=== PATIENT | male | born 1975 | race Hispanic/Latino ===

== ENCOUNTER 2024-05-03 08:56 | Inpatient (IN) | payer MEDICAID ==
[~2024-05-03] VITALS: Ht 172.7 cm; Wt 108.9 kg
[2024-05-03 09:55] LABS: BASOPHILS # (AUTO) 0.04 K/uL (0.00-0.20); BASOPHILS % (AUTO) 0.3 % (0.0-5.0); EOSINOPHILS # (AUTO) 0.01 K/uL (0.00-0.70); EOSINOPHILS % (AUTO) 0.1 % (0.0-8.0); HEMATOCRIT 51.2 % (42-54); IMMATURE GRANULOCYTE ABSOLUTE 0.02 K/uL (0-1); LYMPHOCYTES # (AUTO) 2.1 K/uL (1.0-4.8); MEAN CORPUSCULAR HEMOGLOBIN 29.3 pg (27.0-33.0); MEAN CORPUSCULAR VOLUME 86.3 fL (79-99); MONOCYTES # (AUTO) 0.7 K/uL (0.1-1.0); MONOCYTES % (AUTO) 5.7 % (3.0-13.0); NEUTROPHILS % (AUTO) 77.7 % (40.0-77.0); PLATELET COUNT (AUTO) 157 K/uL (130-400); RED BLOOD CELL COUNT(AUTO) 5.93 MIL/uL (4.50-6.20); RED CELL DISTRIBUTION WIDTH 12.3 % (11.0-15.5); WHITE BLOOD COUNT (AUTO) 12.9 K/uL (4.8-10.8)
[2024-05-03 10:09] LABS: CREATININE 0.9 mg/dL (0.5-1.3); POTASSIUM 3.6 mmol/L (3.5-5.1)
[2024-05-03 10:32] LABS: BILIRUBIN,DIRECT 0.3 mg/dL (0.0-0.3); BILIRUBIN,TOTAL 1.1 mg/dL (0.2-1.0); TOTAL PROTEIN, SERUM 7.9 g/dL (6.0-8.3)
--- NOTE | 2024-05-03 10:38 | ERN ---
ED Note History of Present Illness Stated Complaint: MEDICAL CLEARANCE Chief Complaint: Medical Clearance Time Seen by MD: 08:59 Dictation: 48-year-old male presents to the ED via EMS for evaluation of medical clearance. Patient is currently admitted at [facility] and was sent for evaluation and are requesting a CK level. Allergies: Coded Allergies: Penicillins (Unverified Allergy, Unknown, 05/03/24) Past Medical History Past Medical History: Depression Surgical History: Other Review of System Dictation Constitutional: Negative for fever,chills, and weight loss Eyes: Negative for injury, pain,redness, and discharge ENT: Negative for injury,pain or swelling Cardiovascular: Negative for chest pain, palpitations, and edema Respiratory: Negative for shortness of breath, cough, and wheezing, Abdomen/GI: Negative for abdominal pain, nausea, vomiting, diarrhea, and constipation Back: Negative for injury and pain : Negative for injury, bleeding and discharge MS/Extremity: Negative for injury and deformity Skin: Negative for rash, and discoloration Initial Vital Sign VS Vital Signs Date Time Temp Pulse Resp B/P (MAP) Pulse Ox O2 Delivery O2 Flow Rate FiO2 05/03/24 08:59 98.4 79 20 169/97 99 Room Air 05/03/24 13:31 0 21 Physical Exam Dictation General: awake, alert, NAD Head/Face: Normocephalic, atraumatic Eyes: PERRL, EOMI, vision at baseline ENT: oral cavity clear, TMs clear, no signs of infection Neck: Trachea midline, supple, no nuchal rigidity Cardiovascular: RRR, normal S1/S2, No MRGs, no JVD Respiratory: CTAB, no respiratory distress, No rales or wheezes Abdomen: Soft, non-tender, non-distended, normal bowel sounds, no guarding or rebound. Skin: Warm, dry, normal turgor, no rash MS/Extremity: Pulses equal, no cyanosis, neurovascular intact, FROM Neuro: COAx4, GCS 15, strength 5/5, CN 2-12 intact, normal cerebellar exam, nor mal gait, Psych: Flat affect Results (Laboratory/Radiology) Laboratory/Radiology Laboratory Tests Test 05/03/24 09:41 05/03/24 10:30 05/03/24 14:02 White Blood Count 12.9 K/uL (4.8-10.8) H Red Blood Count 5.93 MIL/uL (4.50-6.20) Hemoglobin 17.4 g/dL (14.0-18.0) Hematocrit 51.2 % (42-54) Mean Corpuscular Volume 86.3 fL (79-99) Mean Corpuscular Hemoglobin 29.3 pg (27.0-33.0) Mean Corpuscular Hemoglobin Concent 34.0 g/dL (32.0-36.0) Red Cell Distribution Width 12.3 % (11.0-15.5) Platelet Count 157 K/uL (130-400) Mean Platelet Volume 10.1 fL (7.5-10.5) Immature Granulocyte % (Auto) 0.2 % (0-1) Neutrophils (%) (Auto) 77.7 % (40.0-77.0) H Lymphocytes (%) (Auto) 16.0 % (21.0-51.0) L Monocytes (%) (Auto) 5.7 % (3.0-13.0) Eosinophils (%) (Auto) 0.1 % (0.0-8.0) Basophils (%) (Auto) 0.3 % (0.0-5.0) Neutrophils # (Auto) 10.0 K/uL (1.8-7.7) H Lymphocytes # (Auto) 2.1 K/uL (1.0-4.8) Monocytes # (Auto) 0.7 K/uL (0.1-1.0) Eosinophils # (Auto) 0.01 K/uL (0.00-0.70) Basophils # (Auto) 0.04 K/uL (0.00-0.20) Absolute Immature Granulocyte (auto 0.02 K/uL (0-1) Nucleated Red Blood Cells 0.0 % (0.0-0.19) Sodium Level 138 mmol/L (136-145) Potassium Level 3.6 mmol/L (3.5-5.1) Chloride Level 99 mmol/L (101-111) L Carbon Dioxide Level 26 mmol/L (21-32) Blood Urea Nitrogen 20 mg/dL (7-18) H Creatinine 0.9 mg/dL (0.5-1.3) Glomerular Filtration Rate Calc 107 mL/min (>90) Random Glucose 240 mg/dL (70-105) H Total Calcium 9.2 mg/dL (8.5-10.1) Total Bilirubin 1.1 mg/dL (0.2-1.0) H Direct Bilirubin 0.3 mg/dL (0.0-0.3) Aspartate Amino Transf (AST/SGOT) 62 U/L (10-37) H Alanine Aminotransferase (ALT/SGPT) 39 U/L (12-78) Alkaline Phosphatase 80 U/L (50-136) Ammonia 21 umol/L (11-32) Total Creatine Kinase 2851 U/L (21-232) *H 3187 U/L (21-232) *H Total Protein 7.9 g/dL (6.0-8.3) Albumin 4.0 g/dL (3.5-5.0) Urine Color YELLOW (YELLOW) Urine Appearance CLEAR (CLEAR) Urine pH 5.5 (5.0-8.0) Urine Specific [place] 1.036 (1.001-1.031) Urine Protein 50 mg/dL (NEGATIVE) H Urine Glucose (UA) 300 mg/dL (NEGATIVE) H Urine Ketones 20 mg/dL (NEGATIVE) H Urine Occult Blood MODERATE (NEGATIVE) H Urine Nitrate NEGATIVE (NEGATIVE) Urine Bilirubin NEGATIVE mg/dL (NEGATIVE) Urine Urobilinogen 0.2 mg/dL (0.2-1.0) Urine Leukocyte Esterase 500 Julio Cesar/uL (NEGATIVE) H Urine RBC 6-10 /HPF (0-1) H Urine WBC 26-50 /HPF (0-1) H Urine Squamous Epithelial Cells RARE /HPF (0-2) Urine Bacteria RARE /HPF (None Seen) Urine Opiates Screen NEGATIVE (NEGATIVE) Urine Barbiturates Screen NEGATIVE (NEGATIVE) Urine Phencyclidine Screen NEGATIVE (NEGATIVE) Urine Amphetamines Screen NEGATIVE (NEGATIVE) Urine Benzodiazepines Screen NEGATIVE (NEGATIVE) Urine Cocaine Screen NEGATIVE (NEGATIVE) Urine Marijuana (THC) Screen NEGATIVE (NEGATIVE) Hemoglobin A1c 7.7 % (4.0-6.0) H Estimated Average Glucose (eAG) 174 mg/dL (70-126) H Labs Reviewed?: Yes ED Course ED Course Orders Procedure Category Date Status Time Basic Metabolic Panel LAB 05/03/24 Complete 09: Cbc With Differential LAB 05/03/24 Complete 09:23 Hepatic Function Panel LAB 05/03/24 Complete 09:23 Creatine Kinase, Total LAB 05/03/24 Complete 09:23 Ammonia LAB 05/03/24 Complete 09:23 Urinalysis Profile LAB 05/03/24 Complete 09:23 Drug Screen Urine LAB 05/03/24 Complete 09:23 0.9%Nacl 1000ml (Ns PHA 05/03/24 Complete 1000ml) 11:00 0.9%Nacl 1000ml (Ns PHA 05/03/24 Complete 1000ml) 11:00 Culture Urine ANA 05/03/24 In Process 10:55 Ceftriaxone 2gm Vial PHA 05/03/24 Complete (Rocephin 2gm Inj) 11:30 Creatine Kinase, Total LAB 05/03/24 Complete 13:57 Magnesium LAB 05/03/24 In Process 16:42 12 Lead Ekg Tracing- EKG 05/03/24 Logged Technical 16:42 Thiamine Hcl (Vitamin PHA 05/03/24 In Process B-1) 17:00 Lactated Ringers PHA 05/03/24 Complete 1000ml (Lactated 17:00 Chest 1vw RAD 05/03/24 Taken 16:42 Ceftriaxone 1g Vial PHA 05/04/24 Complete (Rocephine 1g Inj) 09:00 One To One Sitter CPOE 05/03/24 Transmitted 16:42 Suicide Precautions CPOE 05/03/24 Transmitted 16:42 Initiate ANDIE 05/03/24 In Process Hyperglycemia Protoco 16:42 Insulin Regular, PHA 05/03/24 In Process Human 3ml (Humulin R 21:00 Hemoglobin A1c LAB 05/03/24 Complete 16:42 Thyroid Stimulating LAB 05/03/24 In Process Hormone 16:42 Admit Orders ADM 05/03/24 Transmitted 16:46 Influenza Type A & B, LAB 05/03/24 Logged Rapid 16:46 Covid Rna Naat LAB 05/03/24 Logged 16:46 Psychiatry Consult CONPHYSVC 05/03/24 Transmitted 16:48 Famotidine 20mg Vial PHA 05/03/24 In Process (Pepcid 20mg Vial) 21:00 Acetaminophen 500mg PHA 05/03/24 In Process Tab (Tylenol 500mg T 17:00 Ondansetron 4mg Inj PHA 05/03/24 In Process (Zofran 4mg Inj) 17:00 Fall Precautions CPOE 05/03/24 Transmitted 16:48 Lactated Ringers PHA 05/03/24 Logged 1000ml (Lactated 17:09 Nephrology Consult CONPHYSVC 05/03/24 Transmitted 17:09 Vital Signs Date Time Temp Pulse Resp B/P (MAP) Pulse Ox O2 Delivery O2 Flow Rate FiO2 05/03/24 17:10 98.1 84 18 165/70 97 Room Air* 0 21 05/03/24 15:22 90 20 130/69 99 Room Air* 0 21 05/03/24 13:31 98.8 98 20 125/65 97 Room Air* 0 21 05/03/24 08:59 98.4 79 20 169/97 99 Room Air Medical Decision Making MDM MDM: Differential diagnosis: Dehydration, electrolyte imbalance, rhabdomyolysis 1630- Dr. Pepper hospitalist consult, accepts patient for admission Rationale: Tests considered and ordered secondary to shared decision making incl ude: labs, ECG and radiology Risk of complication and/or morbidity or mortality of patient management: None Medications-Per medication reconciliation Need for hospitalization: Patient does meet criteria for hospitalization. Need for emergency major/minor surgery: No There are no social concerns with this patient. I independently interpreted the test that were performed, results were reviewed by me and considered findings on radiology if ordered. Medical management and examination interpretation discussions were had by me with other qualified healthcare professionals as indicated for the patient's care. DX & DISP Disposition: Inpatient Decision to Admit Date: May 03, 2024 Decision to Admit Time: 16:30 Departure Impression: Primary Impression: Rhabdomyolysis Additional Impression: UTI (urinary tract infection) Condition: Stable Referrals: SELF,REFERRAL (PCP) TONYA CRENSHAW MD May 03, 2024 10:38
[2024-05-03 10:52] LABS: APPEARANCE,URINE CLEAR (CLEAR); BILIRUBIN,URINE NEGATIVE (NEGATIVE); COLOR,URINE YELLOW (YELLOW); GLUCOSE, URINE (UA) 300 mg/dL (NEGATIVE); KETONES,URINE 20 mg/dL (NEGATIVE); LEUKOCYTE ESTERASE ,URINE 500 Leu/uL (NEGATIVE); NITRATE,URINE NEGATIVE (NEGATIVE); OCCULT BLOOD,URINE MODERATE (NEGATIVE); PH,URINE 5.5 (5.0-8.0); PROTEIN,URINE 50 mg/dL (NEGATIVE); UROBILINOGEN,URINE 0.2 mg/dL (0.2-1.0)
[2024-05-03 10:55] LABS: ADD UA MICROSCOPIC YES
[2024-05-03 11:01] LABS: AMPHET/METH SCREEN,URINE NEGATIVE (NEGATIVE); BARBITURATE SCREEN, URINE NEGATIVE (NEGATIVE); BENZODIAZEPINES SCREEN,URINE NEGATIVE (NEGATIVE); CANNABINOID SCREEN,URINE NEGATIVE (NEGATIVE); COCAINE SCREEN,URINE NEGATIVE (NEGATIVE); OPIATE SCREEN,URINE NEGATIVE (NEGATIVE); PHENCYCLIDINE SCREEN,URINE NEGATIVE (NEGATIVE)
[2024-05-03 11:13] LABS: BACTERIA,URINE RARE /HPF (None Seen); MUCUS,URINE RARE LPF (None Seen); SQUAMOUS EPITHELIAL CELL,UR RARE /HPF (0-2); WBC,URINE 26-50 /HPF (0-1)
[2024-05-03] MEDS: 0.9%NACL 1000ML 1,000 ML IV ONE ×2 (11:29→11:30)
[2024-05-03] MEDS: CEFTRIAXONE 2GM VIAL IVPB ONE (13:00)
--- NOTE | 2024-05-03 13:00 | NUR ---
ENDORSED CARE FROM CYNTHIA BENTON AT THIS TIME.
[2024-05-03] MEDS ORDERED: ondanSETRON 4MG INJ IVP PRN (17:00)
[2024-05-03] MEDS ORDERED: acetaMINOPHEN 500 MG TABLET PO PRN (17:00)
[2024-05-03] MEDS ORDERED: LACTATED RINGERS 1000ML 1,000 ML IV SCH (17:00)
[2024-05-03 17:06] LABS: HEMOGLOBIN A1C 7.7 % (4.0-6.0)
--- NOTE | 2024-05-03 17:16 | HMCIMG ---
PORTABLE CHEST RADIOGRAPH INDICATION: assess for any significant pulmonary infilatrtes, possible pacemaker (?) COMPARISON: None FINDINGS: Left sided dual chamber pacer and continuous leads remain in customary position. Heart size is normal. The pulmonary vascularity and branden appear normal. No abnormal pulmonary parenchymal opacity or consolidation identified. No significant pleural effusion noted. No pneumothorax detected. IMPRESSION: No radiographic evidence for any acute cardiopulmonary process.
[2024-05-03] MEDS: LACTATED RINGERS 1000ML 1,000 ML IV SCH (17:18)
[2024-05-03] MEDS: THIAMINE HCL 100 MG/ML 2ML VIAL IVP SCH (17:18)
[2024-05-03] MEDS ORDERED: LOSA50TA64 PO (17:22)
[2024-05-03] MEDS ORDERED: DAPA10TA PO (17:22)
[2024-05-03] MEDS ORDERED: ATOR-2 PO (17:23)
[2024-05-03] MEDS ORDERED: SPIR1TAB4 PO (17:24)
[2024-05-03] MEDS ORDERED: INSU100V IV (17:29)
[2024-05-03] MEDS ORDERED: PoTASSium chloRIDE 20MEQ ER 20 MEQ ERTAB PO PRN (17:30)
[2024-05-03] MEDS ORDERED: PoTASSium chloRIDE 10MEQ/100ML 100 ML IV PRN (17:30)
[2024-05-03] MEDS ORDERED: FLUO20CA30 PO (17:30)
[2024-05-03 17:44] LABS: SARS-CoV-2, RNA, NAAT NEGATIVE SARS CoV-2 (NEGATIVE)
[2024-05-03 17:46] LABS: MAGNESIUM 1.4 mg/dL (1.80-2.40); THYROID STIMULATING HORMONE 1.06 uIU/mL (0.36-3.74)
[2024-05-03 17:49] LABS: INFLUENZA TYPE A Negative For Type A (NEGATIVE); INFLUENZA TYPE B Negative For Type B (NEGATIVE)
--- NOTE | 2024-05-03 17:59 | HMCIMG ---
CT HEAD WITHOUT CONTRAST INDICATION: Confusion hallucinations TECHNIQUE: Noncontrast axial helical CT images from the vertex through the skull base using 5 mm slice thickness without contrast material. CT was performed with one or more of the following dose reduction techniques: Automated exposure control, adjustment of the mA and/or kV according to patient size, or use of iterative reconstruction technique. COMPARISON: None FINDINGS: The cerebral and cerebellar hemispheres are age-appropriate in appearance. No evidence for abnormal extra-axial fluid collections or masses. The ventricles and sulci are normal in size and configuration. No evidence for intracranial parenchymal, epidural, or subdural hemorrhage, mass effect or midline shift. The rodriguez-white matter differentiation is well preserved. No secondary evidence to suggest acute ischemia. The brainstem and cerebellum appear normal. The visualized orbits appear unremarkable. The visible paranasal sinuses and mastoid air cells are clear. The calvarium appears normal. IMPRESSION: No acute intracranial process identified.
--- NOTE | 2024-05-03 18:32 | HP ---
[facility] PHYS[facility] Date of Service: May 03, 2024 Time of Service: 18:32 HISTORY OF PRESENT ILLNESS: Date of service: 05/03/2024, patient was seen in [facility] hallway A 48-year-old male with underlying history of hypertension, coronary artery disease, ischemic cardiomyopathy with EF of 30%, history of ICD, type 2 diabetes mellitus, underlying history of major depression with prior suicidal attempt about 20 years ago who presented to the ER for further evaluation of confusion, agitation and significant depression. Patient is a poor historian and able to answer only simple questions. He was evaluated by Mg gaffney earlier today and sent to [facility] ER to assess for rhabdomyolysis. I was able to contact patient's mother on phone, Mrs. Carolyne Covarrubias who stated that patient has underlying history of heart failure, ischemic cardiomyopathy with prior history of PCI and is followed by a administration intern in [place]. He has a history of ICD placement as well. He has not followed up with Cardiology per mother for about a year. Mom states that patient may have used synthetic marijuana yesterday. She noticed that patient was having hallucinations, agitation, confusion and also noticed that patient has been suffering from major depression. Patient lives by himself at home in an apartment, mother checks on him frequently. Patient also has two other brothers. Mom states that patient prior to getting ill two days ago usually suffers from significant depression and usually keeps to himself. Denies any significant alcohol or smoking. Patient is able to tell me that he is not in chest pain. Complains of having myalgias. He also reports having frequent urination. He is not completely able to tell me about his prior cardiac comorbidities. He does report that he has diabetes and takes mealtime insulin. On presentation to the hospital, patient was noted to be afebrile with T-max of 98.4 F, heart rate of 79, blood pressure of 169/97. [place] [address] with neutrophilia, hemoglobin of 17.4, platelet count of 811598. BMP remarkable for sodium of 138, potassium 3.6, BUN of 20, creatinine of 0.9, magnesium of 1.4, CK of 2851 which up trended to 3187. Patient did receive 2 L of NS bolus in the ER. Patient was also noted to have significant urinary tract infection with leukocyte esterase of 500, pyuria and bacteriuria. Patient will be started on IV fluid hydration, IV antibiotics, and we will monitor patient closely given underlying history of cardiomyopathy with reduced ejection fraction. Consultation with psychiatry will be requested. We will have Nephrology follow this patient closely as well, monitor closely for signs of volume overload while patient remains on IV hydration. REVIEW OF SYSTEMS CONSTITUTIONAL: Confusion, hallucinations, agitation NEUROLOGICAL: Denies headache, amaurosis fugax, motor weakness, sensory de ficit, vertigo/spinning sensation, gait abnormalities, or tremors. ENT: No hearing loss, otalgia, otorrhea, rhinitis, rhinorrhea, hoarseness, or sore throat. CARDIOVASCULAR: Denies any exertional angina, dyspnea on exertion, orthopnea, paroxysmal nocturnal dyspnea, palpitations, life-threatening arrhythmias, claudication. PULMONARY: Denies any shortness of breath, cough, phlegm/sputum, hemoptysis, pleuritic chest pain. SLEEP: Denies morning headaches, daytime somnolence or napping. Denies difficulty falling asleep, staying asleep, waking from sleep. Denies knowledge of snoring. GASTROINTESTINAL: Denies any type of dysphagia to either liquids or solids. Denies nausea, vomiting, pyrosis, early satiety, abdominal pain, diarrhea, constipation, or changes in stool consistency or caliber. Denies coffee-ground emesis, hematemesis, hematochezia, or melanotic stools. GENITOURINARY: Denies frequency, urgency, nocturia, hematuria or incontinence (Storage/Irritative symptoms.) Low urinary stream, straining to void, urinary intermittency or hesitancy, splitting of the voiding stream, terminal dribbling. ENDOCRINOLOGIC: Denies polyuria, polydipsia, polyphagia or heat/cold intolerances. HEMATOLOGIC: Denies thrombophilia/previous clots, or coagulopathy/bleeding disorders. ONCOLOGIC: Denies personal history of malignancy. DERMATOLOGIC: Denies rashes or pruritus. PSYCHIATRIC: Patient has been having hallucinations, significant depression and per nurse, patient also was having suicidal ideation PAST MEDICAL HISTORY: Hypertension, hyperlipidemia, coronary artery disease, ischemic cardiomyopathy, history of ICD placement, type 2 diabetes mellitus, history of major depression PAST SURGICAL HISTORY: History of ICD placement about 10 years ago PAST SOCIAL HISTORY: Lives by himself at home and mother checks on him frequently, denies significant smoking or alcohol consumption, mother suspects that patient may have used synthetic marijuana, per mother, patient goes to adult daycare as well FAMILY HISTORY: Family history of heart disease and mother required pacemaker placement Allergies: Patient has allergic reaction to penicillin Home medications: I was able to call [facility], Patient's current home medication list includes atorvastatin 80 mg daily, Farxiga 10 mg daily, Prozac 2 0 mg daily, mealtime insulin 10 units t.i.d. a.c., losartan 50 mg daily, spironolactone 25 mg daily, mirtazapine 7.5 mg daily Coded Allergies: Penicillins (Unverified Allergy, Unknown, 05/03/24) PHYSICAL EXAM GENERAL APPEARANCE: The patient is awake, alert, and oriented, in no acute cardiopulmonary distress. NEUROLOGICAL: Cranial nerves II-XII grossly intact. Motor is 5/5 in bilateral upper and lower extremities proximal to distal. No sensory deficits. HEENT: Face is symmetric. Pupils are equal and reactive. Extraocular movements are intact. NECK: Supple. No JVD. No thyromegaly. No submental, submandibular, pre- /postauricular, occipital or supraclavicular lymphadenopathy. CHEST: Normal chest expansion. No Telemetry. LUNGS: Absence of any rales, rhonchi or any wheezing. CARDIOVASCULAR: Regular. S1 and S2 normal. No appreciable rubs, murmurs or gallops. ABDOMEN: Soft, nontender, and nondistended. There is no rebound, voluntary guarding, or rigidity. : Deferred. No Hickman. EXTREMITIES: Non-edematous and not cyanotic. No clubbing. Good capillary refill. SKIN: No skin breakdown. Vital Sign (Last 24 Hours) 05/03/24 17:10 Temp 98.1 Pulse 84 Resp 18 B/P (MAP) 165/70 Pulse Ox 97 O2 Delivery Room Air* O2 Flow Rate 0 FiO2 21 LABS: Laboratory: Test 05/03/24 17:23 05/03/24 14:02 05/03/24 10:30 05/03/24 09:41 Range/Units Influenza Type A Antigen Negative For Type A NEGATIVE Influenza Type B Antigen Negative For Type B NEGATIVE SARS-CoV-2, RNA, NAAT NEGATIVE SARS CoV-2 NEGATIVE Hemoglobin A1c 7.7 H 4.0-6.0 % Estimated Average Glucose (eAG) 174 H 70-126 mg/dL Magnesium Level 1.40 L 1.80-2.40 mg/dL Total Creatine Kinase 3187 *H 21-232 U/L B-Type Natriuretic Peptide 41 0-100 pg/mL Thyroid Stimulating Hormone (TSH) 1.06 0.36-3.74 uIU/mL Urine Color YELLOW YELLOW Urine Appearance CLEAR CLEAR Urine pH 5.5 5.0-8.0 Urine Specific [place] 1.036 H 1.001-1.031 Urine Protein 50 H NEGATIVE mg/dL Urine Glucose (UA) 300 H NEGATIVE mg/dL Urine Ketones 20 H NEGATIVE mg/dL Urine Occult Blood MODERATE H NEGATIVE Urine Nitrate NEGATIVE NEGATIVE Urine Bilirubin NEGATIVE NEGATIVE mg/dL Urine Urobilinogen 0.2 0.2-1.0 mg/dL Urine Leukocyte Esterase 500 H NEGATIVE Julio Cesar/uL Urine RBC 6-10 H 0-1 /HPF Urine WBC 26-50 H 0-1 /HPF Urine Squamous Epithelial Cells RARE 0-2 /HPF Urine Bacteria RARE None Seen /HPF Urine Opiates Screen NEGATIVE NEGATIVE Urine Barbiturates Screen NEGATIVE NEGATIVE Urine Phencyclidine Screen NEGATIVE NEGATIVE Urine Amphetamines Screen NEGATIVE NEGATIVE Urine Benzodiazepines Screen NEGATIVE NEGATIVE Urine Cocaine Screen NEGATIVE NEGATIVE Urine Marijuana (THC) Screen NEGATIVE NEGATIVE White Blood Count 12.9 H 4.8-10.8 K/uL Red Blood Count 5.93 4.50-6.20 MIL/uL Hemoglobin 17.4 14.0-18.0 g/dL Hematocrit 51.2 42-54 % Mean Corpuscular Volume 86.3 79-99 fL Mean Corpuscular Hemoglobin 29.3 27.0-33.0 pg Mean Corpuscular Hemoglobin Concent 34.0 32.0-36.0 g/dL Red Cell Distribution Width 12.3 11.0-15.5 % Platelet Count 157 130-400 K/uL Mean Platelet Volume 10.1 7.5-10.5 fL Immature Granulocyte % (Auto) 0.2 0-1 % Neutrophils (%) (Auto) 77.7 H 40.0-77.0 % Lymphocytes (%) (Auto) 16.0 L 21.0-51.0 % Monocytes (%) (Auto) 5.7 3.0-13.0 % Eosinophils (%) (Auto) 0.1 0.0-8.0 % Basophils (%) (Auto) 0.3 0.0-5.0 % Neutrophils # (Auto) 10.0 H 1.8-7.7 K/uL Lymphocytes # (Auto) 2.1 1.0-4.8 K/uL Monocytes # (Auto) 0.7 0.1-1.0 K/uL Eosinophils # (Auto) 0.01 0.00-0.70 K/uL Basophils # (Auto) 0.04 0.00-0.20 K/uL Absolute Immature Granulocyte (auto 0.02 0-1 K/uL Nucleated Red Blood Cells 0.0 0.0-0.19 % Sodium Level 138 136-145 mmol/L Potassium Level 3.6 3.5-5.1 mmol/L Chloride Level 99 L 101-111 mmol/L Carbon Dioxide Level 26 21-32 mmol/L Blood Urea Nitrogen 20 H 7-18 mg/dL Creatinine 0.9 0.5-1.3 mg/dL Glomerular Filtration Rate Calc 107 >90 mL/min Random Glucose 240 H 70-105 mg/dL Total Calcium 9.2 8.5-10.1 mg/dL Total Bilirubin 1.1 H 0.2-1.0 mg/dL Direct Bilirubin 0.3 0.0-0.3 mg/dL Aspartate Amino Transf (AST/SGOT) 62 H 10-37 U/L Alanine Aminotransferase (ALT/SGPT) 39 12-78 U/L Alkaline Phosphatase 80 50-136 U/L Ammonia 21 11-32 umol/L Total Protein 7.9 6.0-8.3 g/dL Albumin 4.0 3.5-5.0 g/dL Current Medications Medications (Trade) Dose Ordered Sig/Bryce Route PRN Reason Start Time Stop Time Status Last Admin Dose Admin Acetaminophen (TYLenol 500MG TAB) 500 mg Q6H PRN PO MILD PAIN (1-3) 05/03/24 17:00 06/02/24 16:59 Ceftriaxone Sodium (ROCEphine 1G INJ) 1 gm BID IVPB 05/04/24 09:00 05/03/24 16:59 DC Famotidine (Pepcid 20mg Vial) 20 mg BID IV 05/03/24 21:00 06/02/24 20:59 Fluoxetine HCl (FLUoxetine HCL 20 MG CAPSULE) 20 mg DAILY PO 05/04/24 09:00 06/03/24 08:59 Insulin Human Regular (humuLIN R 100 UNIT/ML 3ML) INSULIN SLIDING SCAL... ACHS SQ 05/03/24 21:00 06/02/24 20:59 Lactated Ringer's 1,000 ml @ 100 mls/hr Q10H IV 05/03/24 17:09 06/02/24 17:08 05/03/24 17:18 100 MLS/HR Lactated Ringer's 1,000 ml @ 150 mls/hr Q6H40M IV 05/03/24 17:00 05/03/24 17:10 DC Losartan Potassium (CozAAR 50 mg TAB) 50 mg DAILY PO 05/04/24 09:00 06/03/24 08:59 Magnesium Sulfate 50 ml @ 0 mls/hr PROTOCOL IV 05/03/24 17:30 06/02/24 17:29 Ondansetron HCl (zoFRAN 4MG INJ) 4 mg Q6H PRN IVP NAUSEA/VOMITING 05/03/24 17:00 06/02/24 16:59 Potassium Chloride 100 ml @ 100 mls/hr AD PRN IV POTASSIUM PROTOCOL 05/03/24 17:30 06/02/24 17:29 Potassium Chloride (K-Dur/Klor-Con 20meq) 10 meq AD PRN PO POTASSIUM PROTOCOL 05/03/24 17:30 06/02/24 17:29 Potassium Chloride (KCl 10% Elixir 20meq/15ml) 10 meq AD PRN PO POTASSIUM PROTOCOL 05/03/24 17:30 06/02/24 17:29 Thiamine HCl (Vitamin B-1) 100 mg Q24H IVP 05/03/24 17:00 06/02/24 16:59 05/03/24 17:18 100 MG DIAGNOSTICS / RADIOLOGY: SERVICE 1712 REASON: 2 days of confusion, hallucinations ORDERING PHYSICIAN: HARJIT PEPPER MD PROCEDURE: HEAD WO - CT HEAD/BRAIN W/O CONTRAST CT HEAD WITHOUT CONTRAST INDICATION: Confusion hallucinations TECHNIQUE: Noncontrast axial helical CT images from the vertex through the skull base using 5 mm slice thickness without contrast material. CT was performed with one or more of the following dose reduction techniques: Automated exposure control, adjustment of the mA and/or kV according to patient size, or use of iterative reconstruction technique. COMPARISON: None FINDINGS: The cerebral and cerebellar hemispheres are age-appropriate in appearance. No evidence for abnormal extra-axial fluid collections or masses. The ventricles and sulci are normal in size and configuration. No evidence for intracranial parenchymal, epidural, or subdural hemorrhage, mass effect or midline shift. The rordiguez-white matter differentiation is well preserved. No secondary evidence to suggest acute ischemia. The brainstem and cerebellum appear normal. The visualized orbits appear unremarkable. The visible paranasal sinuses and mastoid air cells are clear. The calvarium appears normal. IMPRESSION: No acute intracranial process identified. DICTATED BY: CALLIE SCHRADER MD DATE: 05/03/241756 ELECTRONICALLY SIGNED BY: CALLIE SCHRADER MD DATE: 05/03/241758 SERVICE 164 REASON: assess for any significant pulmonary infilatrtes, possible pacemaker (?) ORDERING PHYSICIAN: HARJIT PEPPER MD PROCEDURE: CXR1VW - CHEST 1VW PORTABLE CHEST RADIOGRAPH INDICATION: assess for any significant pulmonary infilatrtes, possible pacemaker (?) COMPARISON: None FINDINGS: Left sided dual chamber pacer and continuous leads remain in customary position. Heart size is normal. The pulmonary vascularity and branden appear normal. No abnormal pulmonary parenchymal opacity or consolidation identified. No significant pleural effusion noted. No pneumothorax detected. IMPRESSION: No radiographic evidence for any acute cardiopulmonary process. DICTATED BY: CALLIE SCHRADER MD DATE: 05/03/241707 ELECTRONICALLY SIGNED BY: CALLIE SCHRADER MD DATE: 05/03/241715 ASSESSMENT: Acute rhabdomyolysis, POA Urinary tract infection, POA Dehydration, POA Hypomagnesemia, POA Leukocytosis, POA Underlying history of advanced cardiomyopathy with last known LVEF of close to 30-35%, POA History of coronary artery disease, POA Major depression with suicidal thoughts, POA Hx of suicidal attempt about 20 years ago, POA Toxic/metabolic encephalopathy, POA Possible synthetic marijuana abuse, POA Underlying history of type 2 diabetes mellitus, POA Hyperlipidemia, POA Obesity, POA PLAN: Patient will be admitted to medical-surgical floor under telemetry monitoring Patient received by 2 L of NS bolus in the ER, patient appears a little bit restless and has been walking around in the ER hallway We will start gentle IV hydration with LR at 100 cc an hour, monitor closely for signs of volume overload given underlying history of heart failure If patient shows signs of pulmonary edema, patient will be started on IV Lasix Electrolytes will be repleted per protocol including potassium and magnesium Patient received IV Rocephin in the ER, we will start IV Rocephin 1 g b.i.d. for management of UTI, follow up urine culture We will obtain and reconciled home medication list, patient's mother reports that she is unsure if patient overdosed on any of his home medications, we will hold any home meds for tonight, and resume tomorrow morning We will have Psychiatry follow up with this patient Discussed patient's case with Dr. Aaron with Nephrology, appreciate recommendations We will obtain 2D echocardiogram Patient will be placed on sliding scale insulin a.c. and HS and dose adjust Lantus dose based on blood glucose trend All labs will be repeated in the morning including CK We will interrogate patient's ICD Date of service: 05/03/2024 Plan of care was discussed with patient at bedside. I spoke and updated patient's mother on the phone as well, Harjit Pepper MD Advanced Care Planning: Which of the following were discussed: Hospice care: Yes __ No _X_ Therapeutic options: Yes _X_ No __ Advance directives: Yes __X No __ Other discussions: Discussed with who?: Patient Voluntary nature of this service was explained to the patient? Yes _x_ No __ Amount of time spent: 20 minutes HARJIT PEPPER MD May 03, 2024 18:32
[2024-05-03] MEDS: MAGNESIUM 2GM PREMIX 50ML 50 ML IV SCH (19:27)
[2024-05-03] MEDS: PoTASSium chl 10% ELIXIR 20MEQ 20 MEQ/15 ML UDCUP PO PRN (19:27)
--- NOTE | 2024-05-03 19:52 | NUR ---
PATIENT REFUSED TO LEAVE EKG LEADS ON. STATES THEY ARE UNCOMFORTABLE. PATIENT IS ALERT AND ORIENTED. DENIES CHEST PAIN OR SHORTNESS OF BREATH.
--- NOTE | 2024-05-03 20:15 | EKG ---
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
[2024-05-03] MEDS: FAMOTIDINE 20MG VIAL IV SCH (21:06)
[2024-05-03] MEDS: INSULIN humuLIN R 100 UNIT/ML 3ML SQ SCH (21:08)
[2024-05-03] MEDS: hydrOXYzine 10 MG TABLET ONE (21:16)
[2024-05-03] MEDS: hydrOXYzine 10 MG TABLET PO ONE (21:16)
--- NOTE | 2024-05-04 00:49 | NUR ---
ENDORSED CARE TO BRYN BENTON.
--- NOTE | 2024-05-04 01:45 | NUR ---
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
--- NOTE | 2024-05-04 02:00 | NUR ---
ATTEMPTED INTERROGATION WITH [facility], ABLE TO USE AN NHUNG ON A PHONE TO DETERMINE SENIOR MARKET INTELLIGENCE CONSULTANT FROM C XRAY WITH 96% CONFIRMATION OF [facility] DEVICE, INTERROGATION DID NOT TRANSMIT, THERE IS NO AFTER HOURS PHONE NUMBER FOR ASSISTANCE.
--- NOTE | 2024-05-04 03:38 | CONS ---
NEPHROLOGY CONSULTATION REASON FOR CONSULTATION: Underlying rhabdomyolysis and renal dysfunction. HISTORY OF PRESENT ILLNESS: This patient has multiple medical problems, underlying hypertension, coronary artery disease, cardiomyopathy, low ejection fraction, previous ICD placement, diabetes, nephropathy, major depression, previous suicide attempt also. The patient is now admitted with confusion, agitation and significant depression also. The patient has been found to have rhabdomyolysis with elevated CPK. The patient has not followed up with mechanical laboratory technician regularly. Some body aches reported. Medicines are not known. PAST MEDICAL HISTORY: As above with hypertension, hyperlipidemia, coronary artery disease, cardiomyopathy, diabetes, depression. PAST SURGICAL HISTORY: ICD placement. SOCIAL HISTORY: The patient has drug abuse reported marijuana and the patient goes to adult daycare. FAMILY HISTORY: Unremarkable for present contacts except for heart disease. ALLERGIES: PENICILLIN REPORTED. REVIEW OF SYSTEMS: CONSTITUTIONAL: Has mental status changes. No fever, chills or rigors. HEENT: With no headache, oral ulcers, sore throat or difficulty swallowing. No new vision complaint. RESPIRATORY: No cough, expectoration. Has shortness of breath. CARDIOVASCULAR: No orthopnea, PND. GASTROINTESTINAL: Negative for nausea, vomiting, diarrhea. GENITOURINARY: Negative for dysuria or hematuria. DERMATOLOGICAL: No rashes, pruritus or skin lesion. ENDOCRINE: No polyuria, polydipsia or polyphagia. PSYCHIATRIC: Positive for hallucination, depression and suicidal ideation in the past. LYMPHATIC AND HEMATOPOIETIC: No bleeding tendencies or swelling noted in lymph node areas. All the other systems unchanged. PHYSICAL EXAMINATION: GENERAL: Pale and anxious person, awake, alert, no other distress. VITAL SIGNS: Blood pressure is 165/70, pulse 84, respiratory rate is 18. Afebrile. HEENT: Head is atraumatic. Pupils are round and reactive. Sclerae are anicteric. Conjunctivae not pale. Oral mucosa is not dry. NECK: Supple. No masses or bruits. Thyroid is palpable. Neck has no bruits. CHEST: Shows equal thoracic percussion note being resonant in all areas. CARDIAC: Regular rhythm, no rub, no S3, S4. No parasternal heave. Apical beat is not localized. ABDOMEN: No guarding or tenderness. Bowel sounds are normoactive. No free fluid. EXTREMITIES: With no edema and no cyanosis, clubbing. SKIN: No other petechial rashes on inspection and palpation. LYMPHATIC: With no lymph node swelling in neck or axillary areas. LABORATORY DATA: We have reviewed available labs in detail and old records reviewed. Imaging studies are personally reviewed. Old records reviewed. The patient has a flu test negative. COVID test negative. A1c is 7.7. CK is 3187. TSH is normal. Urine has shown some proteinuria, glucosuria and blood. The patient's drug screen has been done and negative for now. The patient has a hemoglobin elevated up to 17.4, white cell count 12.9. Creatinine is 0.9. Other electrolytes reviewed. The patient has elevated liver enzymes. Old records reviewed. DIAGNOSTIC DATA: Imaging studies are personally reviewed. The patient has had CT done with no acute findings. Chest x-ray has shown no significant cardiopulmonary process. PROBLEMS: Include: * Rhabdomyolysis. * Renal insufficiency. * Leukocytosis. * Mental status changes and agitational behavior before. * The patient has impaired LFTs. * Underlying diabetic nephropathy. * Underlying hypertension. * Underlying depression. * Underlying elevated hemoglobin. * The patient has other electrolyte problems including hypomagnesemia, possible urinary tract infection reported, severe cardiomyopathy, ejection fraction 30 35% with previous ICD placement, reported possible drug abuse and obesity and history of suicidal thoughts and other comorbidities. PLAN: * The patient is being admitted to telemetry. * The patient should get fluids. * The patient's atorvastatin or Lipitor should be stopped. * Maintain hydration. * IV Dilaudid 0.5 q. 6 can be used for pain. * Psychiatric evaluation is pending. * Nonsteroidal drugs to be avoided. * Contrast should be avoided. * IV thiamine 100 daily. * Followup by mechanical laboratory technician. * Followup fluid status closely because of cardiomyopathy to avoid any pulmonary edema or fluid overload. * The patient will have a followup electrolytes and magnesium and potassium to be replaced as needed. Nonsteroidal drugs to be avoided and continue followup. I have discussed with other team physicians. We have reviewed the external records, old records. Home medicines were reviewed and old records reviewed. We will continue to follow closely. Condition is critical and guarded. TID: [id number] RECEIPT: [id number]
[2024-05-04 04:28] LABS: BASOPHILS # (AUTO) 0.05 K/uL (0.00-0.20); BASOPHILS % (AUTO) 0.5 % (0.0-5.0); EOSINOPHILS # (AUTO) 0.09 K/uL (0.00-0.70); EOSINOPHILS % (AUTO) 0.8 % (0.0-8.0); HEMATOCRIT 47.4 % (42-54); IMMATURE GRANULOCYTE ABSOLUTE 0.03 K/uL (0-1); LYMPHOCYTES # (AUTO) 2.9 K/uL (1.0-4.8); LYMPHOCYTES % (AUTO) 26.8 % (21.0-51.0); MEAN CORPUSCULAR HEMOGLOBIN 29.7 pg (27.0-33.0); MEAN CORPUSCULAR HGB CONC 34.6 g/dL (32.0-36.0); MEAN CORPUSCULAR VOLUME 85.9 fL (79-99); MONOCYTES # (AUTO) 0.6 K/uL (0.1-1.0); MONOCYTES % (AUTO) 5.3 % (3.0-13.0); NEUTROPHILS # (AUTO) 7.2 K/uL (1.8-7.7); NEUTROPHILS % (AUTO) 66.3 % (40.0-77.0); PLATELET COUNT (AUTO) 148 K/uL (130-400); RED BLOOD CELL COUNT(AUTO) 5.52 MIL/uL (4.50-6.20); RED CELL DISTRIBUTION WIDTH 12.2 % (11.0-15.5); WHITE BLOOD COUNT (AUTO) 10.9 K/uL (4.8-10.8)
[2024-05-04 05:05] LABS: ALBUMIN 3.6 g/dL (3.5-5.0); CREATININE 0.9 mg/dL (0.5-1.3); MAGNESIUM 1.8 mg/dL (1.80-2.40); POTASSIUM 3.7 mmol/L (3.5-5.1); TOTAL PROTEIN, SERUM 7.3 g/dL (6.0-8.3); URIC ACID 5.7 mg/dL (2.6-7.2)
--- NOTE | 2024-05-04 05:56 | NUR ---
PRECIOUS CALL PLACED TO ANSWERING SERVICE. AWAITING CALL BACK FROM THE LOCAL REP. TO REQUEST INTERROGATION OF PTS. PPM/AICD
--- NOTE | 2024-05-04 07:00 | NUR ---
REPORT RECEIVED FROM BRYN BENTON. PENDING [facility] TO COME IN AND INTERROGATE THE PT.
--- NOTE | 2024-05-04 07:15 | NUR ---
1:1 SITTER: PLEASE REFER TO SITTER DOCUMENTATION
--- NOTE | 2024-05-04 07:40 | NUR ---
PT OOB TO BR W/HIS 1:1 ESCORT/TECH
--- NOTE | 2024-05-04 07:45 | NUR ---
[facility] REP: WILLIAMS THE REP CALLED TO FIND PT LOCATION AND HE SAID HE IS ON HIS WAY IN FOR THE INTERROGATION
--- NOTE | 2024-05-04 08:16 | NUR ---
PT CURRENTLY SITTING ON EDGE OF STRETCHER EATING HIS AM MEAL
--- NOTE | 2024-05-04 08:51 | NUR ---
[facility] REP HERE TO EVALUATE PT PACEMAKER
--- NOTE | 2024-05-04 08:51 | NUR ---
PT OOB TO BR W/1;1 SITTER
[2024-05-04] MEDS ORDERED: cefTRIAXone 1G VIAL IVPB SCH (09:00)
[2024-05-04] MEDS: LoSARTan 50 MG TABLET PO SCH (09:36)
[2024-05-04] MEDS: FLUoxetine HCL 20 MG CAPSULE PO SCH (09:36)
[2024-05-04] MEDS: ASPIRIN 81 MG EC TAB PO SCH (09:36)
[2024-05-04] MEDS: Vitamin B Complex/Vit C/Folic Acid PO SCH (09:36)
[2024-05-04] MEDS: THIAMINE HCL 100 MG/ML 2ML VIAL IV SCH (09:37)
[2024-05-04] MEDS: cefTRIAXone 1G VIAL IVPB SCH (09:37)
--- NOTE | 2024-05-04 10:00 | NUR ---
WILLIAMS INTERROGATED THE PACEMAKER AND THE PRINTOUT IS ON THE CHART
--- NOTE | 2024-05-04 11:35 | NUR ---
HOSPITALS RESIDENT HERE TO SEE THE PT.
--- NOTE | 2024-05-04 13:16 | NUR ---
DCP: HOME vs return to [place] Pt from [place], sent to [place] for evaluation and was transferred here for medical clearance. Pt on to , but able to respond to questions asked. Pt on SSI, [employer], lives alone in an apt. Pt sates he has provider services 5hrs daily to assist him with ADLS, home management and cooking his meals.His PCP is José Manuel Arora and uses [facility] for rx. Pt no sure what dcp will be at this time, home vs return to [place]. CM to follow and assist as needed Addendum: 05/04/24 at 1320 by STEFANIE CHAVEZ Amended: Links added.
--- NOTE | 2024-05-04 13:23 | PN ---
NEPHROLOGY PROGRESS NOTE Date/Time Patient Seen: May 04, 2024 Reason for Consultation: 13:18 SUBJECTIVE: This is a 48-year-old male with underlying history of hypertension, coronary artery disease, ischemic cardiomyopathy with EF of 30%, history of ICD, type 2 diabetes mellitus, underlying history of major depression with prior suicidal attempt about 20 years ago who presented to the ER for further evaluation of confusion, agitation and significant depression. The patient is now admitted with confusion, agitation and significant depression also. The patient has been found to have rhabdomyolysis with elevated CPK. The patient has not followed up with piper helper regularly. Some body aches reported. Medicines are not known. Renal function electrolytes are stable CK level was improving He was seen in the emergency room, in no acute distress REVIEW OF SYSTEMS: GENERAL: Negative for any nausea, vomiting, fevers, chills, or weight loss. NEUROLOGIC: Negative for any blurry vision, blind spots, double vision, facial asymmetry, dysphagia, dysarthria, hemiparesis, hemisensory deficits, vertigo, ataxia. HEENT: Negative for any head trauma, neck trauma, neck stiffness, photophobia, phonophobia, sinusitis, rhinitis. CARDIAC: Negative for any chest pain, dyspnea on exertion, paroxysmal nocturnal dyspnea, peripheral edema. PULMONARY: Negative for any shortness of breath, wheezing, COPD, or TB exposure. GASTROINTESTINAL: Negative for any abdominal pain, nausea, vomiting, bright red blood per rectum, melena. GENITOURINARY: Negative for any dysuria, hematuria, incontinence. INTEGUMENTARY: Negative for any rashes, cuts, insect bites. RHEUMATOLOGIC: Negative for any joint pains, photosensitive rashes, history of vasculitis or kidney problems. HEMATOLOGIC: Negative for any abnormal bruising, frequent infections or bleeding. Vital Signs (last 8hr) Date Time Temp Pulse Resp B/P (MAP) Pulse Ox O2 Delivery O2 Flow Rate FiO2 05/04/24 08:30 98.2 86 22 178/140 99 Room Air* 0 21 05/04/24 06:26 84 20 171/101 96 Room Air* 0 21 PHYSICAL EXAM: GENERAL: Alert and oriented x 3. No acute distress. Well-nourished. EYES: EOMI. Anicteric. HENT: Moist mucous membranes. No scleral icterus. No cervical lymphadenopathy. LUNGS: Clear to auscultation bilaterally. No accessory muscle use. CARDIOVASCULAR: Regular rate and rhythm. No murmur. No JVD. ABDOMEN: Soft, non-tender and non-distended. No palpable masses. EXTREMITIES: No edema. Non-tender.?SKIN: No rashes or lesions. Warm. NEUROLOGIC: No focal neurological deficits. CN II-XII grossly intact, but not individually tested. PSYCHIATRIC: Cooperative. Appropriate mood and affect. Current Medications Medications (Trade) Dose Ordered Sig/Bryce Route PRN Reason Start Time Stop Time Status Last Admin Dose Admin Acetaminophen (TYLenol 500MG TAB) 500 mg Q6H PRN PO MILD PAIN (1-3) 05/03/24 17:00 06/02/24 16:59 Aspirin (Aspirin 81mg Ec Tab) 81 mg DAILY PO 05/04/24 09:00 06/03/24 08:59 05/04/24 09:36 81 MG Ceftriaxone Sodium (ROCEphine 1G INJ) 1 gm BID IVPB 05/04/24 09:00 05/03/24 16:59 DC Ceftriaxone Sodium (ROCEphine 1G INJ) 1 gm BID IVPB 05/04/24 09:00 05/14/24 08:59 05/04/24 09:37 1 GM Famotidine (Pepcid 20mg Vial) 20 mg BID IV 05/03/24 21:00 06/02/24 20:59 05/04/24 09:37 20 MG Fluoxetine HCl (FLUoxetine HCL 20 MG CAPSULE) 20 mg DAILY PO 05/04/24 09:00 06/03/24 08:59 05/04/24 09:36 20 MG Hydralazine HCl (APRESOLine 20MG INJ) 10 mg Q6H PRN IV ADMINISTER FOR SBP > 170 05/03/24 19:00 06/02/24 18:59 Insulin Human Regular (humuLIN R 100 UNIT/ML 3ML) INSULIN SLIDING SCAL... ACHS SQ 05/03/24 21:00 06/02/24 20:59 05/03/24 21:08 3 UNIT Lactated Ringer's 1,000 ml @ 100 mls/hr Q10H IV 05/03/24 17:09 06/02/24 17:08 05/04/24 05:00 100 MLS/HR Lactated Ringer's 1,000 ml @ 150 mls/hr Q6H40M IV 05/03/24 17:00 05/03/24 17:10 DC Losartan Potassium (CozAAR 50 mg TAB) 50 mg DAILY PO 05/04/24 09:00 06/03/24 08:59 05/04/24 09:36 50 MG Magnesium Sulfate 50 ml @ 0 mls/hr PROTOCOL IV 05/03/24 17:30 06/02/24 17:29 05/03/24 19:27 25 MLS/HR Ondansetron HCl (zoFRAN 4MG INJ) 4 mg Q6H PRN IVP NAUSEA/VOMITING 05/03/24 17:00 06/02/24 16:59 Potassium Chloride 100 ml @ 100 mls/hr AD PRN IV POTASSIUM PROTOCOL 05/03/24 17:30 06/02/24 17:29 Potassium Chloride (K-Dur/Klor-Con 20meq) 10 meq AD PRN PO POTASSIUM PROTOCOL 05/03/24 17:30 06/02/24 17:29 Potassium Chloride (KCl 10% Elixir 20meq/15ml) 10 meq AD PRN PO POTASSIUM PROTOCOL 05/03/24 17:30 06/02/24 17:29 05/03/24 19:27 10 MEQ Thiamine HCl (Vitamin B-1) 100 mg DAILY IV 05/04/24 09:00 06/03/24 08:59 05/04/24 09:37 100 MG Thiamine HCl (Vitamin B-1) 100 mg Q24H IVP 05/03/24 17:00 06/02/24 16:59 05/03/24 17:18 100 MG Vitamin B Complex/ Vit C/Folic Acid (Nephrovite Tablet) 1 cap DAILY PO 05/04/24 09:00 06/03/24 08:59 05/04/24 09:36 1 [facility]: [ ] Hematology Labs: Test 05/04/24 04:20 Range/Units White Blood Count 10.9 H 4.8-10.8 K/uL Red Blood Count 5.52 4.50-6.20 MIL/uL Hemoglobin 16.4 14.0-18.0 g/dL Hematocrit 47.4 42-54 % Mean Corpuscular Volume 85.9 79-99 fL Mean Corpuscular Hemoglobin 29.7 27.0-33.0 pg Mean Corpuscular Hemoglobin Concent 34.6 32.0-36.0 g/dL Red Cell Distribution Width 12.2 11.0-15.5 % Platelet Count 148 130-400 K/uL Mean Platelet Volume 10.0 7.5-10.5 fL Immature Granulocyte % (Auto) 0.3 0-1 % Neutrophils (%) (Auto) 66.3 40.0-77.0 % Lymphocytes (%) (Auto) 26.8 21.0-51.0 % Monocytes (%) (Auto) 5.3 3.0-13.0 % Eosinophils (%) (Auto) 0.8 0.0-8.0 % Basophils (%) (Auto) 0.5 0.0-5.0 % Neutrophils # (Auto) 7.2 1.8-7.7 K/uL Lymphocytes # (Auto) 2.9 1.0-4.8 K/uL Monocytes # (Auto) 0.6 0.1-1.0 K/uL Eosinophils # (Auto) 0.09 0.00-0.70 K/uL Basophils # (Auto) 0.05 0.00-0.20 K/uL Absolute Immature Granulocyte (auto 0.03 0-1 K/uL Nucleated Red Blood Cells 0.0 0.0-0.19 % Chemistry Labs: Test 05/04/24 12:13 05/04/24 04:20 05/03/24 14:02 05/03/24 09:41 Range/Units Whole Blood Glucose 148 H 70-110 MG/DL Sodium Level 140 136-145 mmol/L Potassium Level 3.7 3.5-5.1 mmol/L Chloride Level 103 101-111 mmol/L Carbon Dioxide Level 29 21-32 mmol/L Blood Urea Nitrogen 15 7-18 mg/dL Creatinine 0.9 0.5-1.3 mg/dL Glomerular Filtration Rate Calc 107 >90 mL/min Random Glucose 141 H 70-105 mg/dL Uric Acid 5.7 2.6-7.2 mg/dL Total Calcium 8.6 8.5-10.1 mg/dL Phosphorus Level 3.0 2.5-4.9 mg/dL Magnesium Level 1.80 1.80-2.40 mg/dL Total Bilirubin 1.0 0.2-1.0 mg/dL Aspartate Amino Transf (AST/SGOT) 88 H 10-37 U/L Alanine Aminotransferase (ALT/SGPT) 54 # 12-78 U/L Alkaline Phosphatase 71 50-136 U/L Total Creatine Kinase 2845 *H 21-232 U/L Total Protein 7.3 6.0-8.3 g/dL Albumin 3.6 3.5-5.0 g/dL Hemoglobin A1c 7.7 H 4.0-6.0 % Estimated Average Glucose (eAG) 174 H 70-126 mg/dL B-Type Natriuretic Peptide 41 0-100 pg/mL Thyroid Stimulating Hormone (TSH) 1.06 0.36-3.74 uIU/mL Direct Bilirubin 0.3 0.0-0.3 mg/dL Ammonia 21 11-32 umol/L DIAGNOSTICS / RADIOLOGY: REASON: 2 days of confusion, hallucinations ORDERING PHYSICIAN: MIGUELITO FIERRO MD PROCEDURE: HEAD WO - CT HEAD/BRAIN W/O CONTRAST CT HEAD WITHOUT CONTRAST INDICATION: Confusion hallucinations TECHNIQUE: Noncontrast axial helical CT images from the vertex through the skull base using 5 mm slice thickness without contrast material. CT was performed with one or more of the following dose reduction techniques: Automated exposure control, adjustment of the mA and/or kV according to patient size, or use of iterative reconstruction technique. COMPARISON: None FINDINGS: The cerebral and cerebellar hemispheres are age-appropriate in appearance. No evidence for abnormal extra-axial fluid collections or masses. The ventricles and sulci are normal in size and configuration. No evidence for intracranial parenchymal, epidural, or subdural hemorrhage, mass effect or midline shift. The rodriguez-white matter differentiation is well preserved. No secondary evidence to suggest acute ischemia. The brainstem and cerebellum appear normal. The visualized orbits appear unremarkable. The visible paranasal sinuses and mastoid air cells are clear. The calvarium appears normal. IMPRESSION: No acute intracranial process identified. DICTATED BY: CALLIE SCHRADER MD DATE: 05/03/24 8732 REASON: assess for any significant pulmonary infilatrtes, possible pacemaker (?) ORDERING PHYSICIAN: MIGUELITO FIERRO MD PROCEDURE: CXR1VW - CHEST 1VW PORTABLE CHEST RADIOGRAPH INDICATION: assess for any significant pulmonary infilatrtes, possible pacemaker (?) COMPARISON: None FINDINGS: Left sided dual chamber pacer and continuous leads remain in customary position. Heart size is normal. The pulmonary vascularity and branden appear normal. No abnormal pulmonary parenchymal opacity or consolidation identified. No significant pleural effusion noted. No pneumothorax detected. IMPRESSION: No radiographic evidence for any acute cardiopulmonary process. 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 We have reviewed external records in detail Require close monitoring of renal function and electrolytes Order CBC, CMP, and electrolytes in am BiPAP as necessary, for respiratory distress Monitor blood pressure adjust medication doses as needed Avoid hypotensive episodes May use Dilaudid 0.5 mg IV every 6 hours as needed for severe pain Monitor blood sugars Strict intake, output, and daily weight should be monitored Please renally adjust medications Avoid nephrotoxic and nonsteroidal drugs Avoid contrast if possible Will continue to monitor renal function, anemia, electrolytes Treatment plan discussed with patient Questions were answered We have discussed with the other team physicians in detail about the care plan We will continue to monitor the patient closely ATTESTATION BY PHYSICIAN I have seen and examined the patient. I reviewed the documentation, medical decision making, and treatment plan as noted by the mid-level provider above. I agree with the findings and plan of care. OSCAR THOMAS MD, [facility] May 04, 2024 13:23
--- NOTE | 2024-05-04 17:53 | NUR ---
PT JUST COMPLETED HIS PM MEAL TRAY
--- NOTE | 2024-05-04 17:53 | NUR ---
UPON SPEAKING TO PT JUST NOW, HE DENIES ANY THOUGHTS OF HARMING HIMSELF OR OTHERS.
--- NOTE | 2024-05-04 18:02 | PN ---
[facility] PROGRESS NOTE Date of Service: May 04, 2024 Time of Service: 17:51 SUBJECTIVE: 05/03/2024 - 48-year-old male with underlying history of hypertension, coronary artery disease, ischemic cardiomyopathy with EF of 30%, history of ICD, type 2 diabetes mellitus, underlying history of major depression with prior suicidal attempt about 20 years ago who presented to the ER for further evaluation of confusion, agitation and significant depression. Patient is a poor historian and able to answer only simple questions. He was evaluated by Mg gaffney earlier today and sent to [facility] ER to assess for rhabdomyolysis. I was able to contact patient's mother on phone, Mrs. 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 He has a history of ICD placement as well. He has not followed up with Cardiology per mother for about a year. Mom states that patient may have used synthetic marijuana yesterday. She noticed that patient was having hallucinations, agitation, confusion and also noticed that patient has been suffering from major depression. Patient lives by himself at home in an apartment, mother checks on him frequently. Patient also has two other brothers. Mom states that patient prior to getting ill two days ago usually suffers from significant depression and usually keeps to himself. Denies any significant alcohol or smoking. Patient is able to tell me that he is not in chest pain. Complains of having myalgias. He also reports having frequent urination. He is not completely able to tell me about his prior cardiac comorbidities. He does report that he has diabetes and takes mealtime insulin. On presentation to the hospital, patient was noted to be afebrile with T-max of 98.4 F, heart rate of 79, blood pressure of 169/97. Labs [place] [address] with neutrophilia, hemoglobin of 17.4, platelet count of 761201. BMP remarkable for sodium of 138, potassium 3.6, BUN of 20, creatinine of 0.9, magnesium of 1.4, CK of 2851 which up trended to 3187. Patient did receive 2 L of NS bolus in the ER. Patient was also noted to have significant urinary tract infection with leukocyte esterase of 500, pyuria and bacteriuria. Patient will be started on IV fluid hydration, IV antibiotics, and we will monitor patient closely given underlying history of cardiomyopathy with reduced ejection fraction. Consultation with psychiatry will be requested. We will have Nephrology follow this patient closely as well, monitor closely for signs of volume overload while patient remains on IV hydration. 05/04/2024 - patient is seen at bedside in [facility] ED hallway A, patient looked anxious and is willing to go home and rest. Patient says that he does not have any pain anywhere in the body, patient seems mildly diaphoretic, answers questions. Patient says that he feels anxious thinking about what the treatment is going on with him and regarding his Cat. Patient vitals are acceptable temperature 98.2, pulse 86, respiratory rate 22, blood pressure 178/140, saturating 99% at room air. Patient labs WBC trended down to 10.9 from 12.9, hemoglobin 16.4 And chemistries show sodium 140, potassium 3.7, creatinine 0.9, BUN 15, total creatinine kinase 2845. Toxicology came back negative. Awaiting urine cultures and echocardiogram report. Patient is seen by Nephrology and we will follow Nephrology recommendations. Patient continues to be on ceftriaxone, fluoxetine, losartan, famotidine. Plan is to hydrate the patient well and recheck the creatinine kinase in the a.m.. Explained the patient about the situation and the plan. Patient is yet to be placed in a room. Patient will be discharged once the creatinine kinase continues to downtrend. REVIEW OF SYSTEMS CONSTITUTIONAL: Confusion, hallucinations, agitation NEUROLOGICAL: Denies headache, amaurosis fugax, motor weakness, sensory deficit, vertigo/spinning sensation, gait abnormalities, or tremors. ENT: No hearing loss, otalgia, otorrhea, rhinitis, rhinorrhea, hoarseness, or sore throat. CARDIOVASCULAR: Denies any exertional angina, dyspnea on exertion, orthopnea, paroxysmal nocturnal dyspnea, palpitations, life-threatening arrhythmias, claudication. PULMONARY: Denies any shortness of breath, cough, phlegm/sputum, hemoptysis, pleuritic chest pain. SLEEP: Denies morning headaches, daytime somnolence or napping. Denies difficulty falling asleep, staying asleep, waking from sleep. Denies knowledge of snoring. GASTROINTESTINAL: Denies any type of dysphagia to either liquids or solids. Denies nausea, vomiting, pyrosis, early satiety, abdominal pain, diarrhea, constipation, or changes in stool consistency or caliber. Denies coffee-ground emesis, hematemesis, hematochezia, or melanotic stools. GENITOURINARY: Denies frequency, urgency, nocturia, hematuria or incontinence (Storage/Irritative symptoms.) Low urinary stream, straining to void, urinary intermittency or hesitancy, splitting of the voiding stream, terminal dribbling. ENDOCRINOLOGIC: Denies polyuria, polydipsia, polyphagia or heat/cold intolerances. HEMATOLOGIC: Denies thrombophilia/previous clots, or coagulopathy/bleeding disorders. ONCOLOGIC: Denies personal history of malignancy. DERMATOLOGIC: Denies rashes or pruritus. PSYCHIATRIC: Patient has been having hallucinations, significant depression and per nurse, patient also was having suicidal ideation PHYSICAL EXAM GENERAL APPEARANCE: The patient is awake, alert, and oriented, in no acute cardiopulmonary distress. NEUROLOGICAL: Cranial nerves II-XII grossly intact. Motor is 5/5 in bilateral upper and lower extremities proximal to distal. No sensory deficits. HEENT: Face is symmetric. Pupils are equal and reactive. Extraocular movements are intact. NECK: Supple. No JVD. No thyromegaly. No submental, submandibular, pre- /postauricular, occipital or supraclavicular lymphadenopathy. CHEST: Normal chest expansion. No Telemetry. LUNGS: Absence of any rales, rhonchi or any wheezing. CARDIOVASCULAR: Regular. S1 and S2 normal. No appreciable rubs, murmurs or gallops. ABDOMEN: Soft, nontender, and nondistended. There is no rebound, voluntary guarding, or rigidity. : Deferred. No Hickman. EXTREMITIES: Non-edematous and not cyanotic. No clubbing. Good capillary refill. SKIN: No skin breakdown. Vital Signs (last 8hr) Date Time Temp Pulse Resp B/P (MAP) Pulse Ox O2 Delivery O2 Flow Rate FiO2 05/04/24 13:30 67 16 163/104 99 Room Air* 0 21 LABS: Laboratory: Test 05/04/24 12:13 05/04/24 04:20 05/03/24 17:23 05/03/24 14:02 Range/Units Whole Blood Glucose 148 H 70-110 MG/DL White Blood Count 10.9 H 4.8-10.8 K/uL Red Blood Count 5.52 4.50-6.20 MIL/uL Hemoglobin 16.4 14.0-18.0 g/dL Hematocrit 47.4 42-54 % Mean Corpuscular Volume 85.9 79-99 fL Mean Corpuscular Hemoglobin 29.7 27.0-33.0 pg Mean Corpuscular Hemoglobin Concent 34.6 32.0-36.0 g/dL Red Cell Distribution Width 12.2 11.0-15.5 % Platelet Count 148 130-400 K/uL Mean Platelet Volume 10.0 7.5-10.5 fL Immature Granulocyte % (Auto) 0.3 0-1 % Neutrophils (%) (Auto) 66.3 40.0-77.0 % Lymphocytes (%) (Auto) 26.8 21.0-51.0 % Monocytes (%) (Auto) 5.3 3.0-13.0 % Eosinophils (%) (Auto) 0.8 0.0-8.0 % Basophils (%) (Auto) 0.5 0.0-5.0 % Neutrophils # (Auto) 7.2 1.8-7.7 K/uL Lymphocytes # (Auto) 2.9 1.0-4.8 K/uL Monocytes # (Auto) 0.6 0.1-1.0 K/uL Eosinophils # (Auto) 0.09 0.00-0.70 K/uL Basophils # (Auto) 0.05 0.00-0.20 K/uL Absolute Immature Granulocyte (auto 0.03 0-1 K/uL Nucleated Red Blood Cells 0.0 0.0-0.19 % Sodium Level 140 136-145 mmol/L Potassium Level 3.7 3.5-5.1 mmol/L Chloride Level 103 101-111 mmol/L Carbon Dioxide Level 29 21-32 mmol/L Blood Urea Nitrogen 15 7-18 mg/dL Creatinine 0.9 0.5-1.3 mg/dL Glomerular Filtration Rate Calc 107 >90 mL/min Random Glucose 141 H 70-105 mg/dL Uric Acid 5.7 2.6-7.2 mg/dL Total Calcium 8.6 8.5-10.1 mg/dL Phosphorus Level 3.0 2.5-4.9 mg/dL Magnesium Level 1.80 1.80-2.40 mg/dL Total Bilirubin 1.0 0.2-1.0 mg/dL Aspartate Amino Transf (AST/SGOT) 88 H 10-37 U/L Alanine Aminotransferase (ALT/SGPT) 54 # 12-78 U/L Alkaline Phosphatase 71 50-136 U/L Total Creatine Kinase 2845 *H 21-232 U/L Total Protein 7.3 6.0-8.3 g/dL Albumin 3.6 3.5-5.0 g/dL Influenza Type A Antigen Negative For Type A NEGATIVE Influenza Type B Antigen Negative For Type B NEGATIVE SARS-CoV-2, RNA, NAAT NEGATIVE SARS CoV-2 NEGATIVE Hemoglobin A1c 7.7 H 4.0-6.0 % Estimated Average Glucose (eAG) 174 H 70-126 mg/dL B-Type Natriuretic Peptide 41 0-100 pg/mL Thyroid Stimulating Hormone (TSH) 1.06 0.36-3.74 uIU/mL Serum Alcohol < 3 0-10 mg/dL Test 05/03/24 10:30 05/03/24 09:41 Range/Units Urine Color YELLOW YELLOW Urine Appearance CLEAR CLEAR Urine pH 5.5 5.0-8.0 Urine Specific [place] 1.036 H 1.001-1.031 Urine Protein 50 H NEGATIVE mg/dL Urine Glucose (UA) 300 H NEGATIVE mg/dL Urine Ketones 20 H NEGATIVE mg/dL Urine Occult Blood MODERATE H NEGATIVE Urine Nitrate NEGATIVE NEGATIVE Urine Bilirubin NEGATIVE NEGATIVE mg/dL Urine Urobilinogen 0.2 0.2-1.0 mg/dL Urine Leukocyte Esterase 500 H NEGATIVE Julio Cesar/uL Urine RBC 6-10 H 0-1 /HPF Urine WBC 26-50 H 0-1 /HPF Urine Squamous Epithelial Cells RARE 0-2 /HPF Urine Bacteria RARE None Seen /HPF Urine Opiates Screen NEGATIVE NEGATIVE Urine Barbiturates Screen NEGATIVE NEGATIVE Urine Phencyclidine Screen NEGATIVE NEGATIVE Urine Amphetamines Screen NEGATIVE NEGATIVE Urine Benzodiazepines Screen NEGATIVE NEGATIVE Urine Cocaine Screen NEGATIVE NEGATIVE Urine Marijuana (THC) Screen NEGATIVE NEGATIVE Direct Bilirubin 0.3 0.0-0.3 mg/dL Ammonia 21 11-32 umol/L Current Medications Medications (Trade) Dose Ordered Sig/Bryce Route PRN Reason Start Time Stop Time Status Last Admin Dose Admin Acetaminophen (TYLenol 500MG TAB) 500 mg Q6H PRN PO MILD PAIN (1-3) 05/03/24 17:00 06/02/24 16:59 Aspirin (Aspirin 81mg Ec Tab) 81 mg DAILY PO 05/04/24 09:00 06/03/24 08:59 05/04/24 09:36 81 MG Ceftriaxone Sodium (ROCEphine 1G INJ) 1 gm BID IVPB 05/04/24 09:00 05/03/24 16:59 DC Ceftriaxone Sodium (ROCEphine 1G INJ) 1 gm BID IVPB 05/04/24 09:00 05/14/24 08:59 05/04/24 09:37 1 GM Famotidine (Pepcid 20mg Vial) 20 mg BID IV 05/03/24 21:00 06/02/24 20:59 05/04/24 09:37 20 MG Fluoxetine HCl (FLUoxetine HCL 20 MG CAPSULE) 20 mg DAILY PO 05/04/24 09:00 06/03/24 08:59 05/04/24 09:36 20 MG Hydralazine HCl (APRESOLine 20MG INJ) 10 mg Q6H PRN IV ADMINISTER FOR SBP > 170 05/03/24 19:00 06/02/24 18:59 Insulin Human Regular (humuLIN R 100 UNIT/ML 3ML) INSULIN SLIDING SCAL... ACHS SQ 05/03/24 21:00 06/02/24 20:59 05/03/24 21:08 3 UNIT Lactated Ringer's 1,000 ml @ 100 mls/hr Q10H IV 05/03/24 17:09 06/02/24 17:08 05/04/24 05:00 100 MLS/HR Lactated Ringer's 1,000 ml @ 150 mls/hr Q6H40M IV 05/03/24 17:00 05/03/24 17:10 DC Losartan Potassium (CozAAR 50 mg TAB) 50 mg DAILY PO 05/04/24 09:00 06/03/24 08:59 05/04/24 09:36 50 MG Magnesium Sulfate 50 ml @ 0 mls/hr PROTOCOL IV 05/03/24 17:30 06/02/24 17:29 05/03/24 19:27 25 MLS/HR Ondansetron HCl (zoFRAN 4MG INJ) 4 mg Q6H PRN IVP NAUSEA/VOMITING 05/03/24 17:00 06/02/24 16:59 Potassium Chloride 100 ml @ 100 mls/hr AD PRN IV POTASSIUM PROTOCOL 05/03/24 17:30 06/02/24 17:29 Potassium Chloride (K-Dur/Klor-Con 20meq) 10 meq AD PRN PO POTASSIUM PROTOCOL 05/03/24 17:30 06/02/24 17:29 Potassium Chloride (KCl 10% Elixir 20meq/15ml) 10 meq AD PRN PO POTASSIUM PROTOCOL 05/03/24 17:30 06/02/24 17:29 05/03/24 19:27 10 MEQ Thiamine HCl (Vitamin B-1) 100 mg DAILY IV 05/04/24 09:00 06/03/24 08:59 05/04/24 09:37 100 MG Thiamine HCl (Vitamin B-1) 100 mg Q24H IVP 05/03/24 17:00 06/02/24 16:59 05/03/24 17:18 100 MG Vitamin B Complex/ Vit C/Folic Acid (Nephrovite Tablet) 1 cap DAILY PO 05/04/24 09:00 06/03/24 08:59 05/04/24 09:36 1 CAP DIAGNOSTICS / RADIOLOGY: PATIENT: LEATHA COVARRUBIAS MR#: [id number] : 1975 SEX: M AGE: 48 LOCATION: [facility] ORDER 46 STATUS: ADM IN REPORT#: [id number] SERVICE 41 REASON: assess for any significant pulmonary infilatrtes, possible pacemaker (?) ORDERING PHYSICIAN: HARJIT PEPPER MD PROCEDURE: CXR1VW - CHEST 1VW PORTABLE CHEST RADIOGRAPH INDICATION: assess for any significant pulmonary infilatrtes, possible pacemaker (?) COMPARISON: None FINDINGS: Left sided dual chamber pacer and continuous leads remain in customary position. Heart size is normal. The pulmonary vascularity and branden appear normal. No abnormal pulmonary parenchymal opacity or consolidation identified. No significant pleural effusion noted. No pneumothorax detected. IMPRESSION: No radiographic evidence for any acute cardiopulmonary process. DICTATED BY: CALLIE SCHRADER MD DATE: 05/03/24 170 ELECTRONICALLY SIGNED BY: CALLIE SCHRADER MD DATE: 05/03/24 171 PATIENT: LEATHA COVARRUBIAS MR#: [id number] : 1975 SEX: M AGE: 48 LOCATION: [facility] ORDER 16 STATUS: ADM IN REPORT#: [id number] SERVICE 11 REASON: 2 days of confusion, hallucinations ORDERING PHYSICIAN: HARJIT PEPPER MD PROCEDURE: HEAD WO - CT HEAD/BRAIN W/O CONTRAST CT HEAD WITHOUT CONTRAST INDICATION: Confusion hallucinations TECHNIQUE: Noncontrast axial helical CT images from the vertex through the skull base using 5 mm slice thickness without contrast material. CT was performed with one or more of the following dose reduction techniques: Automated exposure control, adjustment of the mA and/or kV according to patient size, or use of iterative reconstruction technique. COMPARISON: None FINDINGS: The cerebral and cerebellar hemispheres are age-appropriate in appearance. No evidence for abnormal extra-axial fluid collections or masses. The ventricles and sulci are normal in size and configuration. No evidence for intracranial parenchymal, epidural, or subdural hemorrhage, mass effect or midline shift. The rodriguez-white matter differentiation is well preserved. No secondary evidence to suggest acute ischemia. The brainstem and cerebellum appear normal. The visualized orbits appear unremarkable. The visible paranasal sinuses and mastoid air cells are clear. The calvarium appears normal. IMPRESSION: No acute intracranial process identified. DICTATED BY: CALLIE SCHRADER MD DATE: 05/03/241756 ELECTRONICALLY SIGNED BY: CALLIE SCHRADER MD DATE: 05/03/241758 ASSESSMENT: Acute rhabdomyolysis, POA Urinary tract infection, POA Dehydration, POA Hypomagnesemia, POA Leukocytosis, POA Underlying history of advanced cardiomyopathy with last known LVEF of close to 30-35%, POA History of coronary artery disease, POA Major depression with suicidal thoughts, POA Hx of suicidal attempt about 20 years ago, POA Toxic/metabolic encephalopathy, POA Possible synthetic marijuana abuse, POA Underlying history of type 2 diabetes mellitus, POA Hyperlipidemia, POA Obesity, POA PLAN: Patient will be admitted to medical-surgical floor under telemetry monitoring Patient received by 2 L of NS bolus in the ER, patient appears a little bit restless and has been walking around in the ER hallway We will start gentle IV hydration with LR at 100 cc an hour, monitor closely for signs of volume overload given underlying history of heart failure If patient shows signs of pulmonary edema, patient will be started on IV Lasix Electrolytes will be repleted per protocol including potassium and magnesium Patient received IV Rocephin in the ER, we will start IV Rocephin 1 g b.i.d. for management of UTI, follow up urine culture We will obtain and reconciled home medication list, patient's mother reports that she is unsure if patient overdosed on any of his home medications, we will hold any home meds for tonight, and resume tomorrow morning We will have Psychiatry follow up with this patient Discussed patient's case with Dr. Aaron with Nephrology, appreciate recommendations We will obtain 2D echocardiogram Patient will be placed on sliding scale insulin a.c. and HS and dose adjust Lantus dose based on blood glucose trend All labs will be repeated in the morning including CK We will interrogate patient's ICD Date of service: 05/03/2024 Plan of care was discussed with patient at bedside. I spoke and updated patient's mother on the phone as well, Harjit Pepper MD Advanced Care Planning: Which of the following were discussed: Hospice care: Yes __ No _X_ Therapeutic options: Yes _X_ No __ Advance directives: Yes __X No __ Other discussions: Discussed with who?: Patient Voluntary nature of this service was explained to the patient? Yes _x_ No __ Amount of time spent: 20 minutes ATTESTATION BY PHYSICIAN I have seen and examined the patient. I reviewed the documentation, medical decision making, and treatment plan as noted by the mid-level provider above. I agree with the findings and plan of care. Nabor Sharp MD, KEERTI K MD May 04, 2024 18:02
[2024-05-04] MEDS: hydrALAZine 20MG/ML VIAL IV PRN (18:40)
--- NOTE | 2024-05-04 20:14 | NUR ---
PATIENT COMPLAINT OF ANXIETY IN ROOM. CALLED [facility] IN [employer] CIRCUIT DESIGN ENGINEER [facility] [employer]. ORDERS FOR XANAX 0.5MG TABLET ONE DOSE NOW. ORDERS NOTED AND CARRIED OUT.
[2024-05-04] MEDS: ALPRAZolam 0.5 MG TABLET PO SCH (20:36)
[2024-05-04 21:10] VITALS: BP 164/97; PULSE 80; RESP 16; TEMP 97.5; O2SAT 99
--- NOTE | 2024-05-04 21:24 | HMCSR ---
APPROVED REPORT EXAM: Two-dimensional and M-mode echocardiogram with Doppler and color Doppler. INDICATION ICD: Heart failure 2D Dimensions LVED Vol(simp.)121.0 mL LVES Vol(simp.)73.1 mL LVEF(%, simp.)40 % LA ESV INDEX (4CH)17.60 mL/m2 LA ESV INDEX (2CH)20.80 mL/m2 LA ESV INDEX (BP)20.90 mL/m2 M-Mode Dimensions LA (MM)2.9 (1.6-4.0cm) Ao Root(MM)3.0 (2.0-3.7cm) Aortic Valve AoV VTI0.3 mAo Mean GR4.0 mmHgLVOT VTI0.20 m Mitral Valve MV E Vmax90.2 cm/sDECEL Dmbu948 ms MV A Vmax65.5 cm/sP 1/2 T65 ms E/A ratio1.4MVA (PHT)3.4 cm2 TDI E/E' Ysvrqm70.9E/E' Oqhmzzs97.3 Medial E' Peak V6.50 cm/sLateral E' Peak V5.90 cm/s Tricuspid Valve RAP (EST) 8 mmHgRVSP8.0 mmHg Left Ventricle The left ventricle is normal size. There is basal septal hypercontractility and apical hypokinesis co nsistent with stress induced cardiomyopathy. There is normal mild ventricular wall thininng. LVEF is estimated at 30-35% The LV diastolic function was unable to be assessed due to atrial arrhythmia. Right Ventricle The right ventricle is normal size. The right ventricular systolic function is normal. Device lead is present in the right ventricle. Atria The left atrium size is normal. The right atrium size is normal. Aortic Valve The aortic valve is normal in structure. No aortic regurgitation is present. There is no aortic valvu lar stenosis. Mitral Valve The mitral valve is normal in structure. There is no mitral valve regurgitation noted. There is no mi tral valve stenosis. Tricuspid Valve The tricuspid valve is normal in structure. There is no tricuspid valve regurgitation noted. Pulmonic Valve The pulmonary valve is normal in structure. There is no pulmonic valvular regurgitation. Great Vessels The aortic root is normal in size. The IVC is normal in size and collapses <50% with inspiration. Pericardium There is no pericardial effusion. Other Information Quality : Technically difficult due pts limited cooperation. Pt does not like to be touched Conclusion The left ventricle is normal size. There is basal septal hypercontractility and apical hypokinesis consistent with stress induced cardio myopathy. LVEF is estimated at 30-35% The right ventricle is normal size. The right ventricular systolic function is normal. The left atrium size is normal. The right atrium size is normal. No valvular pathology. There is no pericardial effusion.
--- NOTE | 2024-05-04 22:30 | NUR ---
PATIENT NOTED THROWING INFUSION PUMP ON FLOOR. STATING "YOU ALL NEED TO STOP MAKING FUN OF ME! I'M DYING HERE MAN AND YOU GUYS ARE LAUGHING AT ME!" PATIENT WAS ADVISED THAT NURSING STAFF WAS NOT TALKING ABOUT HIM. NURSING STAFF ATTEMPTED TO CALM PATIENT DOWN BUT JULIET CONTINUED WITH PACING IN ROOM AND PERSISTENT THAT MEDICAL STAFF WAS MAKING FUN OF HIM. SECURITY WAS CONTACTED BY JOSEPHINE CHARGE NURSE. SECURITY IN ROOM ALSO ATTEMPTED TO CALM PATIENT DOWN BY TALKING TO HIM. PATIENT THEN NOTED RIPPING OUT HIS IV AND WALK TOWARDS THE EXIT. ART FIRE CODE INSPECTOR AND SECURITY FOLLOWED PATIENT TOWARDS EXIT VOICING TO HELP TAKE OUT HIS IV IF HE WAS PLANNING ON LEAVING AGAINST MEDICAL ADVICE. PATIENT REACHED ED ENTRANCE WHERE ART FIRE CODE INSPECTOR HELPED REMOVE JULIET'S IV TO LEFT AC. GAUZE WAS PLACED ON IV SITE AND SECURED WITH TAPE. PATIENT LEFT VOICING "I'M GOING TO COME BACK AND KILL ALL YOU GUYS! YOU BETTER HOPE NOTHING HAPPENS TO ME!"
--- NOTE | 2024-05-04 22:34 | NUR ---
CALLED [facility] [employer] AT #[phone] EXT [phone]. ADVISED THEM PATIENT HAD LEFT AGAINST MEDICAL [facility] AND HAD VOICED THREATS TOWARDS NURSING STAFF HE WAS LEAVING THE FACILITY. REPORTED PEOPLE INVOLVED: LLOYD SHELL (SECURITY), WILLIAMS DUFFY (CIVIL PROCESS SERVER), AND MYSELF, JANI FRANKEL RN. CONTROL VALVE TECHNICIAN WILL BE DISPATCHED TO FILE A POLICE REPORT.
--- NOTE | 2024-05-04 22:45 | NUR ---
[facility] CONTACTED AT THIS TIME #[phone]. SPOKE WITH APPLIED TECHNOLOGIST ADONIS TO ADVISE THEM OF PATIENT LEAVING AGAINST MEDICAL ADVISE. ADONIS VERBALIZED UNDERSTANDING AND WILL REPORT TO HER DATA MODELING SPECIALIST.
--- NOTE | 2024-05-04 22:46 | NUR ---
CALLED [facility] INTERSTATE PLANNER [facility] AT THIS TIME TO INFORM HER OF PATIENT LEAVING AGAINST MEDICAL ADVISE. COLLEEN VERBALIZED UNDERSTANDING.
--- NOTE | 2024-05-04 23:10 | NUR ---
MARIA ELENA BROUGHT BACK BY [facility].
== END 2024-05-04 23:29 | disposition left against medical advice (07) | DRG 463 ==
LOC: EDH 08:56 → EDHIP 08:57
PROVIDERS: ADMIT Internal Medicine; ATTEND Internal Medicine
DX: N39.0 Urinary tract infection, site not specified (principal); G92.8 Other toxic encephalopathy; M62.82 Rhabdomyolysis; R45.851 Suicidal ideations; I50.9 Heart failure, unspecified; R74.8 Abnormal levels of other serum enzymes; E86.0 Dehydration; E83.42 Hypomagnesemia; F32.9 Major depressive disorder, single episode, unspecified; I25.5 Ischemic cardiomyopathy; I25.10 Atherosclerotic heart disease of native coronary artery without angina pectoris; I11.0 Hypertensive heart disease with heart failure; E78.5 Hyperlipidemia, unspecified; E66.9 Obesity, unspecified; Z82.49 Family history of ischemic heart disease and other diseases of the circulatory system; Z98.61 Coronary angioplasty status; Z95.810 Presence of automatic (implantable) cardiac defibrillator; Z91.51 Personal history of suicidal behavior; Z88.0 Allergy status to penicillin; E11.21 Type 2 diabetes mellitus with diabetic nephropathy
CPT/HCPCS: 36415; 70450; 71045; 80048; 80053; 80076; 80305; 81001; 82140; 82550; 82948; 83036; 83735; 83880; 84100; 84443; 84550; 85025; 87086; 87635; 87804; 93005; 93306; 96361; 96365; 96366; 96375; 99285; G0378; J0360; J0696; J1815; J3411; J3475; J3490; J7030